=== PATIENT | female | born 1975 | race Caucasian/White ===

== ENCOUNTER 2023-07-26 13:49 | Emergency (ER) | payer BC ==
[~2023-07-26] VITALS: Ht 157.5 cm; Wt 72.0 kg
[~2023-07-26 13:49] MED LIST changes: -MAGN400T40 PO
[2023-07-26 14:53] VITALS: O2SAT 96
[2023-07-26 16:00] LABS: Basophils # (auto) 0 10 ^3/uL (0-0.2); Basophils % (auto) 0.3 % (0.0-2.0); Eosinophils # (auto) 0 10 ^3/uL (0-0.8); Eosinophils % (auto) 0.5 % (0.0-7.0); Hemoglobin 13.1 g/dL (12.2-16.2); Lymphocytes # (auto) 1.5 10 ^3/uL (0.4-5.4); Lymphocytes % (auto) 25.6 % (10.0-50.0); Mean Corpuscular Hemoglobin 30.9 pg (28.0-32.0); Mean Corpuscular Hgb Conc. 33.7 g/dL (32.0-36.0); Mean Corpuscular Volume 91.7 fL (80.0-100.0); Monocytes # (auto) 0.5 10 ^3/uL (0-1.3); Monocytes % (auto) 8.6 % (0.0-12.0); Neutrophils # (auto) 3.9 10 ^3/uL (1.6-8.6); Nucleated Red Blood Cells % 0.1 %; Red Blood Cells 4.26 10^6/uL (4.0-5.20); Red Cell Distribution Width 13.2 % (11.8-14.3); White Blood Cell 5.9 10^3/uL (4.4-10.8)
[2023-07-26 16:39] LABS: Alanine Aminotransferase 17 U/L (7-40); Albumin 4.1 g/dL (3.2-4.8); Alkaline Phosphatase 73 U/L (46-116); Anion Gap 8 (5-15); Aspartate Aminotransferase 20 U/L (13-40); Calcium 9.8 mg/dL (8.7-10.4); Carbon Dioxide 25 mmol/L (20-30); Chloride 109 mmol/L (98-107); Glucose 108 mg/dL (74-106); Magnesium 1.5 mg/dL (1.6-2.6); Sodium 142 mmol/L (136-145)
[2023-07-26 16:40] LABS: BUN/Creatinine Ratio 10.6 (10.0-20.0); Bilirubin, Total 0.8 mg/dL (0.2-1.0); Blood Urea Nitrogen < 5 mg/dL (9-23)
[2023-07-26 16:46] LABS: INR 1.11 (0.9-1.15); Partial Thromboplastin Time 30.7 SEC (24.5-34.5); Prothrombin Time 11.7 sec (9.3-11.8)
[2023-07-26] MEDS ORDERED: MAGN400T40 PO (16:52)
[2023-07-26 16:56] VITALS: BP 109/74; PULSE 77; RESP 16; TEMP 98.3
== END 2023-07-26 17:14 | disposition home or self-care (01) ==
LOC: ER 13:49
DX: I48.0 Paroxysmal atrial fibrillation (principal); E83.42 Hypomagnesemia; E05.80 Other thyrotoxicosis without thyrotoxic crisis or storm; I12.0 Hypertensive chronic kidney disease with stage 5 chronic kidney disease or end stage renal disease; N18.6 End stage renal disease; J45.909 Unspecified asthma, uncomplicated; E03.9 Hypothyroidism, unspecified; Z79.899 Other long term (current) drug therapy; Z88.8 Allergy status to other drugs, medicaments and biological substances
CPT/HCPCS: 36415; 71045; 80053; 83735; 83880; 84443; 84484; 85025; 85610; 85730

== ENCOUNTER → 2023-07-26 | Outpatient (CLI) | payer BC ==
[~2023-07-26] VITALS: Ht 157.5 cm; Wt 75.3 kg
[2023-07-26] VITALS (7 sets, daily range): BP systolic 101–133; BP diastolic 62–76; PULSE 74–136; RESP 16–20; O2SAT 100
[~2023-07-26] MED LIST: ALBUAER3 IN; APIX5TAB PO; ATOR20TA50 PO; FLEC100T PO; LEV50T PO; LEVO125T PO; MAGN400T40 PO; MET25T PO; MYCO500T PO; PRE5T PO; TACR1CAP4 PO
[2023-07-26] MEDS: ADENOSINE 63 MG in GIVE UN-DILUTED 0 ML IV ONE (12:15)
[2023-07-26] MEDS: AMIODARONE BOLUS KIT 100 ML IV ONE (12:25)
[2023-07-26] MEDS: METOPROLOL TARTRATE 1MG/1ML-5ML VIAL IV ONE (12:25)
[2023-07-26] MEDS: fentaNYL CITRATE 100 MCG/2 ML VL IV ONE ×3 (12:30→17:45)
[2023-07-26] MEDS: MIDAZOLAM HCL 2MG/2ML 2ml VIAL (1mg/ml) IV ONE ×2 (12:36→12:42)
[2023-07-26] MEDS: fentaNYL CITRATE 100 MCG/2 ML VL ONE (17:44)
[2023-07-26] MEDS: MIDAZOLAM HCL 2MG/2ML 2ml VIAL (1mg/ml) ONE (17:45)
== END | disposition home or self-care (01) ==
LOC: XYW 10:20
PROVIDERS: ATTEND Student in an Organized Health Care Education/Training Program
DX: I25.2 Old myocardial infarction (principal); E78.5 Hyperlipidemia, unspecified; Z94.0 Kidney transplant status
CPT/HCPCS: 78452; 93017; A9500; J0153; J2250; J3010

== ENCOUNTER 2023-10-02 21:14 | Inpatient (IN) | payer BC ==
[~2023-10-02] VITALS: Ht 157.5 cm; Wt 70.4 kg
[~2023-10-02 21:14] MED LIST changes: +MAGN400T40 PO
[2023-10-02 21:38] VITALS: PULSE 120; RESP 20
[2023-10-02 21:55] LABS: Basophils # (auto) 0 10 ^3/uL (0-0.2); Basophils % (auto) 0.3 % (0.0-2.0); Eosinophils # (auto) 0.1 10 ^3/uL (0-0.8); Hematocrit 41.1 % (36.0-46.0); Hemoglobin 13.6 g/dL (12.2-16.2); Lymphocytes # (auto) 2.8 10 ^3/uL (0.4-5.4); Lymphocytes % (auto) 42.6 % (10.0-50.0); Mean Corpuscular Hemoglobin 30.5 pg (28.0-32.0); Mean Corpuscular Hgb Conc. 33.2 g/dL (32.0-36.0); Mean Corpuscular Volume 91.9 fL (80.0-100.0); Monocytes # (auto) 0.7 10 ^3/uL (0-1.3); Monocytes % (auto) 10.7 % (0.0-12.0); Neutrophils # (auto) 2.9 10 ^3/uL (1.6-8.6); Neutrophils % (auto) 45.4 % (37.0-80.0); Nucleated Red Blood Cells % 0.2 %; Red Blood Cells 4.48 10^6/uL (4.0-5.20); Red Cell Distribution Width 13.3 % (11.8-14.3); White Blood Cell 6.5 10^3/uL (4.4-10.8)
[2023-10-02] MEDS: METOPROLOL TARTRATE 1MG/1ML-5ML VIAL IV ONE (22:04)
[2023-10-02 22:11] LABS: INR 1.06 (0.9-1.15); Partial Thromboplastin Time 26.5 SEC (24.5-34.5); Prothrombin Time 11.2 sec (9.3-11.8)
[2023-10-02 22:30] LABS: Alanine Aminotransferase 16 U/L (7-40); Albumin 4.5 g/dL (3.2-4.8); Alkaline Phosphatase 79 U/L (46-116); Anion Gap 12 (5-15); Aspartate Aminotransferase 13 U/L (13-40); BUN/Creatinine Ratio 9.8 (10.0-20.0); Bilirubin, Total 0.6 mg/dL (0.2-1.0); Blood Urea Nitrogen 6 mg/dL (9-23); Calcium 10.4 mg/dL (8.7-10.4); Carbon Dioxide 20 mmol/L (20-30); Chloride 110 mmol/L (98-107); Glucose 172 mg/dL (74-106); Potassium 3.4 mmol/L (3.5-5.1); Sodium 142 mmol/L (136-145); Total Protein 7.2 g/dL (5.7-8.2)
[2023-10-02 22:39] LABS: Urine Bacteria None Seen /hpf (None Seen)
[2023-10-02 23:00] LABS: Urine Blood Negative /uL (Negative); Urine Clarity Clear (Clear); Urine Color Colorless (Yellow); Urine Protein, UAD Negative (Negative); Urine Specific Gravity 1.009 (1.001-1.035); Urine Urobilinogen Normal (Negative); Urine WBC 2 /hpf (0 - 5); Urine pH 6.5 (5.0-9.0)
[2023-10-02] MEDS: ONDANSETRON HCL 4 MG/2 ML VIAL IV ONE (23:19)
[2023-10-02] MEDS: MORPHINE SULFATE 4 MG/ML SYR/VIAL IV ONE (23:19)
[2023-10-03] MEDS: ASPirin-EC 325mg tab PO ONE (00:26)
[2023-10-03] MEDS ORDERED: NITROGLYCERIN 0.4 MG SL TAB SL PRN (00:45)
[2023-10-03] MEDS ORDERED: ONDANSETRON HCL 4 MG/2 ML VIAL IV PRN (00:45)
[2023-10-03] MEDS ORDERED: MORPHINE SULFATE INJ 2 MG/ml SYRG IV PRN (00:45)
[2023-10-03] MEDS: POTASSIUM CHL 20 Meq TABLET PO ONE (00:57)
[2023-10-03 03:49] VITALS: BP 101/52; PULSE 61; RESP 17; TEMP 98.7; O2SAT 97
[2023-10-03 05:00] VITALS: BP 105/53; PULSE 63; RESP 19; TEMP 98.2; O2SAT 100
[2023-10-03] MEDS ORDERED: AMLO1TAB22 PO (05:31)
[2023-10-03] MEDS ORDERED: ERGO1CAP12 PO (05:33)
[2023-10-03] MEDS ORDERED: CETI10TA2 PO (05:33)
[2023-10-03] MEDS: LEVOTHYROXINE SODIUM 50 MCG TAB PO SCH (05:48)
[2023-10-03] MEDS ORDERED: LEVOTHYROXINE SODIUM 50 MCG TAB PO SCH (07:15)
[2023-10-03 08:00] VITALS: BP 97/60; PULSE 56; PULSE 60; RESP 16; TEMP 98.6; O2SAT 94
[2023-10-03 09:32] LABS: Basophils # (auto) 0 10 ^3/uL (0-0.2); Basophils % (auto) 0.4 % (0.0-2.0); Eosinophils # (auto) 0.1 10 ^3/uL (0-0.8); Eosinophils % (auto) 1.5 % (0.0-7.0); Hemoglobin 13.1 g/dL (12.2-16.2); Lymphocytes # (auto) 2.4 10 ^3/uL (0.4-5.4); Lymphocytes % (auto) 45.2 % (10.0-50.0); Mean Corpuscular Hemoglobin 31.1 pg (28.0-32.0); Mean Corpuscular Hgb Conc. 33.7 g/dL (32.0-36.0); Mean Corpuscular Volume 92.2 fL (80.0-100.0); Monocytes # (auto) 0.6 10 ^3/uL (0-1.3); Monocytes % (auto) 11.1 % (0.0-12.0); Neutrophils # (auto) 2.2 10 ^3/uL (1.6-8.6); Neutrophils % (auto) 41.8 % (37.0-80.0); Nucleated Red Blood Cells % 0.2 %; Red Blood Cells 4.23 10^6/uL (4.0-5.20); Red Cell Distribution Width 13.1 % (11.8-14.3); White Blood Cell 5.2 10^3/uL (4.4-10.8)
[2023-10-03 09:38] LABS: Alanine Aminotransferase 14 U/L (7-40); Albumin 4.1 g/dL (3.2-4.8); Alkaline Phosphatase 70 U/L (46-116); Anion Gap 6 (5-15); Aspartate Aminotransferase 15 U/L (13-40); Bilirubin, Total 0.5 mg/dL (0.2-1.0); Blood Urea Nitrogen 7 mg/dL (9-23); Calcium 9.9 mg/dL (8.7-10.4); Carbon Dioxide 25 mmol/L (20-30); Chloride 113 mmol/L (98-107); Glucose 104 mg/dL (74-106); Potassium 4.1 mmol/L (3.5-5.1); Sodium 144 mmol/L (136-145)
[2023-10-03 09:39] LABS: Total Protein 6.5 g/dL (5.7-8.2)
[2023-10-03] MEDS: predniSONE 5 MG TAB PO SCH (10:00)
[2023-10-03] MEDS: MYCOPHENOLATE 500 MG TAB PO SCH (10:00)
[2023-10-03] MEDS: TACROLIMUS 1 MG CAP PO SCH (10:00)
[2023-10-03] MEDS: APIXABAN 5 MG TAB PO SCH (10:59)
[2023-10-03] MEDS: METOPROLOL TARTRATE 25 MG TAB PO SCH (11:07)
[2023-10-03 12:00] VITALS: BP 116/73; PULSE 71; RESP 16; TEMP 98.4; O2SAT 98
[2023-10-03] MEDS ORDERED: LEV50T PO (14:26)
[2023-10-03] MEDS: AMITRIPTYLINE HCL 10 MG TAB PO ONE (15:00)
[2023-10-03 16:37] VITALS: BP 100/72; PULSE 64; RESP 16; TEMP 98.3; O2SAT 99
[2023-10-03 17:06] VITALS: BP 125/80; PULSE 77; TEMP 36.8
[2023-10-03] MEDS ORDERED: ATORVASTATIN 20 MG TAB PO SCH (22:00)
[2023-10-04] MEDS ORDERED: LEVOTHYROXINE SODIUM 50 MCG TAB PO SCH (06:00)
[2023-10-04] MEDS ORDERED: LEVOTHYROXINE SODIUM 100 MCG TAB PO SCH (06:00)
[2023-10-04 06:07] LABS: Free Thyroxine Index 3.2 (1.2-4.9); Thyroxine (T4) 11.2 ug/dL (4.5-12.0)
[2023-10-04] MEDS ORDERED: AMITRIPTYLINE HCL 10 MG TAB PO SCH (22:00)
== END 2023-10-03 18:20 | disposition home or self-care (01) | DRG 308 ==
LOC: ER 21:14 → EDBD 21:14 → TELE 10-03 00:41 → TELE-EAST 10-03 03:43
PROVIDERS: ADMIT Internal Medicine Pulmonary Disease; ATTEND Internal Medicine Pulmonary Disease
DX: I48.91 Unspecified atrial fibrillation (principal); N18.6 End stage renal disease; Z94.0 Kidney transplant status; I12.0 Hypertensive chronic kidney disease with stage 5 chronic kidney disease or end stage renal disease; D68.9 Coagulation defect, unspecified; E05.90 Thyrotoxicosis, unspecified without thyrotoxic crisis or storm; E87.6 Hypokalemia; E78.5 Hyperlipidemia, unspecified; E03.9 Hypothyroidism, unspecified; F41.9 Anxiety disorder, unspecified; J45.909 Unspecified asthma, uncomplicated; Z88.6 Allergy status to analgesic agent; Z80.0 Family history of malignant neoplasm of digestive organs; Z79.899 Other long term (current) drug therapy; Z79.01 Long term (current) use of anticoagulants
CPT/HCPCS: 36415; 71045; 80053; 80197; 81001; 83735; 84443; 84484; 85025; 85610; 85730; 93005; G0378; J2405; J7507; J7517

== ENCOUNTER 2024-05-05 17:14 | Emergency (ER) | payer BC ==
[~2024-05-05] VITALS: Ht 157.5 cm; Wt 61.6 kg
[~2024-05-05 17:14] MED LIST changes: +AMLO1TAB22 PO; +CETI10TA2 PO; +ERGO1CAP12 PO; -LEV50T PO; +LEVO-848 PO; -LEVO125T PO
[2024-05-05 17:15] VITALS: BP 159/98; RESP 17; O2SAT 100
[2024-05-05 18:10] LABS: Urine Bacteria None Seen /hpf (None Seen)
[2024-05-05 18:14] VITALS: PULSE 83
[2024-05-05 18:25] LABS: Chloride 105 mmol/L (98-107); Potassium 3.9 mmol/L (3.5-5.1); Sodium 141 mmol/L (136-145)
[2024-05-05 18:26] LABS: Anion Gap 13 (5-15); Carbon Dioxide 23 mmol/L (20-31)
[2024-05-05 18:30] LABS: Urine Blood Negative /uL (Negative); Urine Clarity Clear (Clear); Urine Color Colorless (Yellow); Urine Protein, UAD Negative (Negative); Urine Specific Gravity 1.009 (1.001-1.035); Urine Squamous Epithelial Cell None Seen /hpf (<5); Urine Urobilinogen Normal (Negative); Urine WBC < 1 /HPF (0-5)
[2024-05-05 18:30] LABS: Basophils # (auto) 0 10 ^3/uL (0-0.2); Basophils % (auto) 0.3 % (0.0-2.0); Eosinophils # (auto) 0.1 10 ^3/uL (0-0.8); Eosinophils % (auto) 1.2 % (0.0-7.0); Hematocrit 47.2 % (36.0-46.0); Hemoglobin 15.4 g/dL (12.2-16.2); Lymphocytes # (auto) 1.9 10 ^3/uL (0.4-5.4); Lymphocytes % (auto) 27.8 % (10.0-50.0); Mean Corpuscular Hemoglobin 30.5 pg (28.0-32.0); Mean Corpuscular Hgb Conc. 32.6 g/dL (32.0-36.0); Mean Corpuscular Volume 93.5 fL (80.0-100.0); Monocytes # (auto) 0.5 10 ^3/uL (0-1.3); Monocytes % (auto) 7.2 % (0.0-12.0); Neutrophils # (auto) 4.3 10 ^3/uL (1.6-8.6); Neutrophils % (auto) 63.5 % (37.0-80.0); Nucleated Red Blood Cells % 0.1 %; Platelet Count (auto) 230 10^3/uL (140-450); Red Blood Cells 5.05 10^6/uL (4.0-5.20); Red Cell Distribution Width 14.1 % (11.8-14.3); White Blood Cell 6.7 10^3/uL (4.4-10.8)
[2024-05-05 18:31] LABS: Blood Urea Nitrogen 21 mg/dL (9-23)
[2024-05-05 18:34] LABS: Calcium 10.6 mg/dL (8.7-10.4); Glucose 119 mg/dL (74-106)
--- NOTE | 2024-05-05 18:49 | DVH ---
EXAM: XY CHEST PORTABLE TECHNIQUE: Single frontal chest radiograph CLINICAL HISTORY: palp COMPARISON: XY CHEST PORTABLE on DOS: 10/02/23, XY CHEST PORTABLE on DOS: 07/26/23, XY CHEST PORTABLE o n DOS: 06/15/23 Findings/Impression: Frontal chest radiograph demonstrates no acute osseous or superficial soft tissue abnormalities. The trachea is midline. The cardiac silhouette and mediastinum are within normal limits. No pneumothorax, pleural effusions, or consolidations.
--- NOTE | 2024-05-05 19:41 | ED.PDOC ---
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 Patient reports heart rate went up to 113 at rest, was concerned due to hypothyroid issue but since awaiting in the ED lobby, heart rate has been in the 80's. Patient did take 81mg of ASA prior to ED arrival. Patient reports no longer feeling palpitations, denied ever feeling chest pain, SOB, nausea or vomiting, and now states she wants to go home. Patient has an appointment with PCP tomorrow to discuss her thyroid issue. No tobacco, alcohol or substance use reported. Patient is on Eliquis due to possible arrhythmias but has yet to be diagnosed with condition. Chief Complaint: Palpitations Time Seen by MD: 18:48 Primary Care Provider: isamar Reviewed Notes: Nurses Notes, Medications, Allergies Allergies: Coded Allergies: Acetaminophen (Verified Allergy, Unknown, 06/10/23) Hydrocodone (Verified Allergy, Unknown, 06/10/23) Home Meds Active Scripts Levothyroxine Sodium (SYNTHROID TABLET) 50 Mcg Tb, 100 MCG PO QAM@0600 for 30 Days, #30 TAB 2 Refills Prov:MARIAMA MERINO 10/03/23 Magnesium Oxide (MAGNESIUM OXIDE) 400 Mg Tab, 1 TAB PO DAILY for 10 Days, #10 TAB 5 Refills Prov:MARY ARMENDARIZ MD 07/26/23 Flecainide Acetate (Flecainide Acetate) 100 Mg Tab, 0.5 TAB PO BID for 30 Days, #30 TAB 5 Refills Prov:GHULAM ZHANG DO 06/11/23 Metoprolol Tartrate (Lopressor) 25 Mg Tb, 25 MG PO BID for 30 Days, #60 TAB 6 Refills Prov:GHULAM ZHANG DO 06/11/23 Atorvastatin Calcium (ATORVASTATIN CALCIUM) 20 Mg Tab, 10 MG PO HS for 30 Days, #15 TAB 6 Refills Prov:GHULAM ZHANG DO 06/11/23 Apixaban Base (ELIQUIS) 5 Mg Tab, 5 MG PO BID for 30 Days, #60 TAB 6 Refills Prov:GHULAM ZHANG DO 06/11/23 Reported Medications Ergocalciferol (Vitamin D) 50,000 Unit Cap, [address]78 UNIT PO QWEEKLY, CAP 7/30/24 Cetirizine Hcl (Kls Aller-Nel) 10 Mg Tab, 10 MG PO for allergies, TAB 10/03/23 Amlodipine Besylate (Amlodipine Besylate) 5 Mg Tab, 5 MG PO DAILY for hypertension for 30 Days, MG 10/03/23 Albuterol Sulfate (VENTOLIN MDI) 90 Mcg Ih, 90 MCG IN, INH 06/10/23 Prednisone (Prednisone) 5 Mg Tab, 5 MG PO DAILY, TAB 06/10/23 Tacrolimus (Tacrolimus) 1 Mg Cap, 1 MG PO BID, CAP 06/10/23 Mycophenolate Mofetil (Cellcept) 500 Mg Tab, 500 MG PO BID, TAB 06/10/23 Information Source: Patient Mode of Arrival: Ambulatory Severity: Moderate Timing: Hours Duration: Since onset Onset: At Rest Cardiac Risk Factors: Hyperlipidemia, HTN PE Risk Factors: None History of: None Modifying Factors: Nothing Associated Signs and Symptoms: Palpitations Past Medical History PAST MEDICAL HISTORY: Asthma, ESRD, High Lipids, HTN, Thyroid Past Medical History (Other): Lupus Surgical History (Other): kidney transplant HAND ETCHER HELPER History: No Pertinent HAND ETCHER HELPER History Family History Family History (Other): Lupus (Aunt) Social History Smoker: Non-Smoker Alcohol: Denies ETOH Use Drugs: Denies Drug Use Lives In: Home Constitutional: denies: chills, diaphoresis, fatigue, fever, malaise, sweats, weakness, others EENTM: denies: blurred vision, double vision, ear bleeding, ear discharge, ear drainage, ear pain, ear ringing, eye pain, eye redness, hearing loss, mouth pain, mouth swelling, nasal discharge, nose bleeding, nose congestion, nose pain, photophobia, tearing, throat pain, throat swelling, voice changes, others Respiratory: denies: cough, hemoptysis, orthopnea, SOB at rest, shortness of breath, SOB with excertion, stridor, wheezing, others Cardiovascular: reports: palpitations; denies: chest pain, dizzy spells, diaphoresis, Dyspnea on exertion, edema, irregular heart beat, left arm pain, lightheadedness, PND, syncope, others Gastrointestinal: denies: abdomen distended, abdominal pain, blood streaked bowels, constipated, diarrhea, dysphagia, difficulty swallowing, hematemesis, melena, nausea, poor appetite, poor fluid intake, rectal bleeding, rectal pain, vomiting, others Genitourinary: denies: abnormal vagina bleeding, burning, dyspareunia, dysuria, flank pain, frequency, hematuria, incontinence, pain, , vagina discharge, urgency, others Neurological: denies: dizziness, fainting, headache, left sided numbness, left sided weakness, numbness, paresthesia, pre-existing deficit, right sided numbness, right sided weakness, seizure, speech problems, tingling, tremors, weakness, others Musculoskeletal: denies: back pain, gout, joint pain, joint swelling, muscle pain, muscle stiffness, neck pain, others Integumetry: denies: bruises, change in color, change in hair/nails, dryness, laceration, lesions, lumps, rash, wounds, others Allergic/Immunocompromised: denies: Difficulty Healing, Frequent Infections, Hives, Itching, others Hematologic/Lymphatic: denies: anemia, blood clots, easy bleeding, easy bruising, swollen glands, others Endocrine: denies: excessive hunger, excessive sweating, excessive thirst, excessive urination, flushing, intolerance to cold, intolerance to heat, unexplained weight gain, unexplained weight loss, others Psychiatric: denies: anxiety, bipolar disorder, depression, hopeless, panic disorder, schizophrenia, sleepless, suicidal, others All Other Systems: Reviewed and Negative Physical Exam General Appearance: No Apparent Distress HEENT: PERRL/EOMI Neck: Full Range of Motion, Normal Inspection Respiratory: Lungs Clear, No Accessory Muscle Use, No Respiratory Distress, Normal Breath Sounds Cardiovascular: No Edema, No JVD, Regular Rate/Rhythm Breast Exam: Deferred Gastrointestinal: Non Tender, Soft Genitalia: Deferred Pelvic: Deferred Rectal: Deferred Extremities: No calf tenderness, Normal inspection, Normal range of motion, Non-tender, No pedal edema Neurologic: Alert (Oriented x4), Normal Affect, Normal Mood, Other (Ambulatory. No gross focal deficit.) Cerebellar Function: NOT DONE Reflexes: NOT DONE Skin: Dry, Normal Color, Warm Lymphatic: NOT DONE EKG EKG : Comments Sinus tach, rate 113, normal WI and QRS intervals, QTC 475, normal axis, multiple PACs, lateral ST depression Was a procedure done? Was a procedure done?: No CP Differential Dx Differential Diagnosis: Anxiety / Panic Attack, Atrial Dysrhythmia, Electrolyte Disorder, Hyperthyroidism, MT, Pulmonary Embolus, Sinus Tachycardia Differential Diagnosis: CHF Differential Diagnosis: Pericarditis, Pneumonia X-Ray, Labs, Meds, VS Vital Signs Date Time Temp Pulse Resp B/P (MAP) Pulse Ox O2 Delivery O2 Flow Rate FiO2 05/05/24 18:14 83 05/05/24 17:22 113 05/05/24 17:15 98.6 113 17 159/98 (118) 100 Lab Test 05/05/24 18:44 05/05/24 17:44 05/05/24 17:26 Range/Units Troponin I High Sensitivity 4 5 </=34 ng/L White Blood Count 6.7 4.4-10.8 10^3/uL Red Blood Count 5.05 4.0-5.20 10^6/uL Hemoglobin 15.4 12.2-16.2 g/dL Hematocrit 47.2 H 36.0-46.0 % Mean Corpuscular Volume 93.5 80.0-100.0 fL Mean Corpuscular Hemoglobin 30.5 28.0-32.0 pg Mean Corpuscular Hemoglobin Concent 32.6 32.0-36.0 g/dL Red Cell Distribution Width 14.1 11.8-14.3 % Platelet Count 230 140-450 10^3/uL Mean Platelet Volume 8.9 6.9-10.8 fL Neutrophils (%) (Auto) 63.5 37.0-80.0 % Lymphocytes (%) (Auto) 27.8 10.0-50.0 % Monocytes (%) (Auto) 7.2 0.0-12.0 % Eosinophils (%) (Auto) 1.2 0.0-7.0 % Basophils (%) (Auto) 0.3 0.0-2.0 % Neutrophils # (Auto) 4.3 1.6-8.6 10 ^3/uL Lymphocytes # (Auto) 1.9 0.4-5.4 10 ^3/uL Monocytes # (Auto) 0.5 0-1.3 10 ^3/uL Eosinophils # (Auto) 0.1 0-0.8 10 ^3/uL Basophils # (Auto) 0 0-0.2 10 ^3/uL Nucleated Red Blood Cells 0.1 % Sodium Level 141 136-145 mmol/L Potassium Level 3.9 3.5-5.1 mmol/L Chloride Level 105 98-107 mmol/L Carbon Dioxide Level 23 20-31 mmol/L Anion Gap 13 5-15 Blood Urea Nitrogen 21 9-23 mg/dL Creatinine 0.84 0.550-1.02 mg/dL Glomerular Filtration Rate Calc 87 >90 mL/min BUN/Creatinine Ratio 25.0 H 10.0-20.0 Serum Glucose 119 H 74-106 mg/dL Calcium Level 10.6 H 8.7-10.4 mg/dL B-Type Natriuretic Peptide 69.35 0-100 pg/mL Beta HCG, Quantitative 2.3 1.5-4.2 mIU/mL Urine Color Colorless Yellow Urine Clarity Clear Clear Urine pH 6.0 5.0-9.0 Urine Specific [place] 1.009 1.001-1.035 Urine Protein Negative Negative Urine Ketones Negative Negative Urine Blood Negative Negative /uL Urine Nitrite Negative Negative Urine Bilirubin Negative Negative Urine Urobilinogen Normal Negative mg/dL Urine Leukocyte Esterase Negative Negative /uL Urine RBC None seen 0 - 4 /hpf Urine Microscopic WBC < 1 0-5 /HPF Urine Squamous Epithelial Cells None seen <5 /hpf Urine Bacteria None seen None Seen /hpf Urine Glucose Normal Normal mg/dL [place] [id number] Ph: [phone] DIAGNOSTIC IMAGING Diagnostic Imaging Report : [id number] Signed PATIENT: KATY RAMACHANDRAN ACCT: [id number] UNIT: [id number] : 1975 LOC: ER ROOM / BED: / AGE / SEX: 48 / F ADM STATUS: REG ER SERVICE [id number] ORDERING PHYSICIAN: BENIGNO LYNN MD PROCEDURE(s): CXRP - CHEST PORTABLE REASON: palp ORDER NUMBER(s): [id number], ACCESSION NUMBER(s): [id number] EXAM: XY CHEST PORTABLE TECHNIQUE: Single frontal chest radiograph CLINICAL HISTORY: palp COMPARISON: XY CHEST PORTABLE on DOS: 10/02/23, XY CHEST PORTABLE on DOS: 07/26/23, XY CHEST PORTABLE on DOS: 06/15/23 Findings/Impression: Frontal chest radiograph demonstrates no acute osseous or superficial soft tissue abnormalities. The trachea is midline. The cardiac silhouette and mediastinum are within normal limits. No pneumothorax, pleural effusions, or consolidations. 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 The trachea is midline. The cardiac silhouette and mediastinum are within normal limits. No pneumothorax, pleural effusions, or consolidations. CBC, metabolic panel, hCG, UA, BNP and 2 serial troponins unremarkable for any abnormality of acute significance. Thyroid function tests are unavailable stat on the weekends, so were not ordered. On re-evaluation at 2042, patient states she is asymptomatic, she has been checking her heart rate using her smart watch and her heart rate has been in the 80s. Currently it is 83. Other vitals were stable. Hospitalization was considered, however patient stated she did not want to be hospitalized, and would prefer to go home since she has an appointment with her primary physician tomorrow. Patient appears stable for discharge with close outpatient follow-up with her primary physician tomorrow. Time of 1ST Reevaluation: 19:37 Reevaluation 1ST: Unchanged Time of 2ND Reevaluation: 20:44 Reevaluation 2ND: Improved Patient Education/Counseling: Diagnosis, Treatment, Prognosis Family Education/Counseling: Diagnosis, Treatment, Prognosis Departure 1 Departure Time of Disposition: 20:44 Impression: Primary Impression: Heart palpitations Additional Impression: Tachycardia, unspecified Disposition: 01 HOME / SELF CARE / HOMELESS Condition: Stable Additional Instructions: Your blood tests, including screening test for heart attack and heart failure were unremarkable. Your urine test was unremarkable. Your chest x-ray was normal. Your EKG showed a rapid heart rate, however your heart rate is now normal. Follow-up with your primary doctor in 1-2 days for referral to a yarn mercerizer operator helper for further evaluation. Critical Care Note Critical Care Time?: No Stability Stability form required: No Heart Score Heart Score: Heart Score Response (Comments) Value History N/A 0 EKG N/A 0 Age N/A 0 Risk Factors N/A 0 Troponin N/A 0 Total 0 I personally scribed for BENIGNO LYNN MD ([facility]) on 05/05/24 at 19:41. Electronically submitted by Jennifer Hardwick ([facility]). I personally scribed for BENIGNO LYNN MD ([facility]) on 05/05/24 at 19:42. Electronically submitted by Jennifer Hardwick ([facility]). I personally scribed for BENIGNO LYNN MD ([facility]) on 05/05/24 at 19:53. Electronically submitted by Jennifer Hardwick ([facility]). BENIGNO LYNN MD May 05, 2024 19:41
--- NOTE | 2024-05-07 01:05 | ECG ---
[facility] Test Date: 2024-05-05 Test Time: 17:22:06 Pat Name: KATY RAMACHANDRAN Department: ER Room: Gender: F Night Baker: VIKY : 1975 Requested By: SHAJI STERN Order Number: [id number] Reading MD: Measurements Intervals [place] Rate: 113 P: 67 UT: 162 QRS: 46 QRSD: 82 T: 131 QT: 346 QTc: 475 Interpretive Statements Sinus tachycardia Multiple premature complexes, vent & supraven Biatrial enlargement Abnormal R-wave progression, early transition Repol abnrm suggests ischemia, lateral leads Please click the below link to view image of tracing.
--- NOTE | 2024-05-07 15:05 | ECG ---
[facility] Test Date: 2024-05-05 Test Time: 18:14:12 Pat Name: KATY RAMACHANDRAN Department: ER Room: Gender: F Senior Project Coordinator: DR JOYA: 1975 Requested By: BENIGNO BARNES Order Number: [id number] Reading MD: Measurements Intervals [place] Rate: 83 P: 65 VA: 146 QRS: 53 QRSD: 82 T: 105 QT: 375 QTc: 441 Interpretive Statements Sinus rhythm Borderline repolarization abnormality Please click the below link to view image of tracing.
== END 2024-05-05 21:05 | disposition home or self-care (01) ==
LOC: ER 17:14
DX: R00.2 Palpitations (principal); R00.0 Tachycardia, unspecified; E03.9 Hypothyroidism, unspecified; E78.5 Hyperlipidemia, unspecified; I12.0 Hypertensive chronic kidney disease with stage 5 chronic kidney disease or end stage renal disease; N18.6 End stage renal disease; J45.909 Unspecified asthma, uncomplicated; R06.02 Shortness of breath; Z94.0 Kidney transplant status; Z79.899 Other long term (current) drug therapy; Z88.5 Allergy status to narcotic agent
CPT/HCPCS: 36415; 71045; 80048; 81001; 83880; 84484; 84702; 85025; 93005